=== PATIENT | male | born 1955 | race Caucasian/White ===

== ENCOUNTER 2017-12-23 09:53 | Day surgery (SDC) | payer OTHER ==
[2017-12-23 08:06] VITALS: BMI 21.6
[2017-12-23 11:57] VITALS: TEMP 97.5
[2017-12-23 15:16] VITALS: BP 121/65; PULSE 63
--- NOTE | 2017-12-24 16:57 | PATH ---
Surgical Pathology Report Patient Name: FRIDA CROWE [facility]. Rec. #: [id number] /Age/Gender: 1955 (Age: 62) / M Account: [id number] Location: [facility]-ENDOSCOPY Taken: 12/23/2017 Received: 12/23/2017 Reported: 12/24/2017 Physicians: Ramón Gary M.D. Specimen(s) Received UPPER RECTAL POLYP Clinical History History of colon polyp Final Diagnosis UPPER RECTAL POLYP, BIOPSY: HYPERPLASTIC POLYP. Electronically Signed Kristopher Hughes M.D. Gross Description Received in formalin, labeled "biopsy polyp from upper rectum" are 2 rosado, irregular portions of soft tissue measuring 0.3 cm. in greatest dimension. The specimen is submitted in toto in one cassette. PHILLIP/12/23/2017 alan/12/23/2017
== END 2017-12-23 12:50 | disposition home or self-care (01) ==
LOC: JASU-ENDO 09:53
PROVIDERS: ATTEND Internal Medicine Gastroenterology
PROC: 0DBP8ZX Excision of Rectum, Via Natural or Artificial Opening Endoscopic, Diagnostic (ICD-10-PCS; principal; 2017-12-23 11:30)
DX: Z12.11 Encounter for screening for malignant neoplasm of colon (principal); Z80.0 Family history of malignant neoplasm of digestive organs; K62.1 Rectal polyp
CPT/HCPCS: 88305-TC